=== PATIENT | female | born 1985 | race Caucasian/White ===

== ENCOUNTER → 2018-11-24 | Outpatient (CLI) | payer BC ==
--- NOTE | 2018-11-24 18:10 | Diagnostic Imaging Report ---
INDICATION: survey. TECHNIQUE: Multiple real-time grayscale images were obtained over the gravid uterus. COMPARISON: None. FINDINGS: Single live intrauterine gestation is identified in a cephalic presentation. The placenta is posteriorly located without evidence of placenta previa. Cervix is closed measuring over 4 cm. cardiac motion is documented at 134 beats per minute. Amniotic fluid is subjectively within normal limits. biometrics are symmetric. They are consistent with an estimated gestational age of 23 weeks and 2 days. Findings are consistent with clinical dating. Intracranial contents of the spine are unremarkable. Four-chamber heart, kidneys, urinary bladder, and three-vessel cord are unremarkable. IMPRESSION: Single live intrauterine gestation in a cephalic presentation with an estimated gestational age of 23 weeks and 2 days. Therefore, there is an estimated due date based upon this examination of March 21, 2019. Findings are consistent with clinical dating. No acute abnormality identified on this examination. Biometrical measurements are as follows: Biparietal 5.78 cm, age 23 weeks 5 days. Head circumference 20.91 cm, age 23 weeks 0 days. Abdominal circumference 17.28 cm, age 22 weeks 2 days. Femur length 4.20 cm, age 23 weeks 5 days. Sonographic estimate age: 23 weeks 2 days. Sonographic estimated date of delivery: 03/21/2019. Estimated Weight: 547 gm (+/- 80 gm). LMP percentile: 82%. heart rate: 134 beats per minute. number: 1 of 1. Dictated by: Dictated on workstation # [id number]
== END ==
LOC: RAD 16:45
PROVIDERS: ATTEND Obstetrics & Gynecology
DX: Z36.89 Encounter for other specified antenatal screening (principal); Z3A.23 23 weeks gestation of pregnancy
CPT/HCPCS: 76805

== ENCOUNTER 2019-03-28 07:23 | Inpatient (IN) | payer BC ==
[~2019-03-28] VITALS: Ht 157 cm; Wt 68.8 kg
[2019-03-28] VITALS (34 sets, daily range): BP systolic 90–148; BP diastolic 50–96
--- NOTE | 2019-03-28 07:15 | NUR ---
Arrived to unit ambulates self with c/o contractions. wt obtained and to room 320. Gowned and urine sample obtained. To bed and monitors on. Oriented to room, call light and surroundings.
[2019-03-28] MEDS ORDERED: PREN-37 PO (07:41)
[2019-03-28 07:49] LABS: BILIRUBIN,URINE NEGATIVE (NEGATIVE); CLARITY,URINE CLEAR; COLOR,URINE YELLOW; GLUCOSE, URINE (UA) NEGATIVE (NEGATIVE); KETONES,URINE NEGATIVE (NEGATIVE); LEUKOCYTE ESTERASE ,URINE NEGATIVE (NEGATIVE); NITRITE,URINE NEGATIVE (NEGATIVE); PH,URINE 6.5 (5-9); PROTEIN,URINE NEGATIVE (NEGATIVE)
--- NOTE | 2019-03-28 07:54 | NUR ---
Dr Bates notified of evaluation, sve, contractions, fhr pattern, pt pain with contractions.
[2019-03-28 08:02] LABS: BACTERIA,URINE MODERATE /HPF
--- NOTE | 2019-03-28 09:00 | NUR ---
pt resting on right side, eyes closed.
--- NOTE | 2019-03-28 10:00 | NUR ---
rn to bedside. pt denies increase in strength or frequency of contractions.
--- NOTE | 2019-03-28 10:42 | NUR ---
Dr Bates updated on sve, contractions. New order for admit received.
[2019-03-28] MEDS ORDERED: D5 LR IV SOLUTION 1,000 ML IV SCH (11:18)
[2019-03-28 11:44] LABS: BASOPHILS % (AUTO) 0 % (0-10); EOSINOPHILS % (AUTO) 0 % (0-10); HEMATOCRIT 39 % (35-52); HEMOGLOBIN 13.1 G/DL (11.5-16.0); LYMPHOCYTES # (AUTO) 1.4 X 10^3 (1.0-4.0); LYMPHOCYTES % (AUTO) 10 % (12-44); MEAN CORPUSCULAR HEMOGLOBIN 28 PG (25-34); MEAN CORPUSCULAR HGB CONC 34 G/DL (32-36); MEAN CORPUSCULAR VOLUME 83 FL (80-99); MEAN PLATELET VOLUME 11.3 FL (7.4-10.4); MONOCYTES % (AUTO) 7 % (0-12); NEUTROPHILS # (AUTO) 11.3 X 10^3 (1.8-7.8); NEUTROPHILS % (AUTO) 83 % (42-75); PLATELET COUNT 206 10^3/uL (130-400); RED CELL DISTRIBUTION WIDTH 15.8 % (10.0-14.5); WHITE BLOOD COUNT 13.7 10^3/uL (4.3-11.0)
[2019-03-28] MEDS ORDERED: SUFENTA 0.6MCG/ML BUPIVA 0.125 100 ML ONE (11:47)
[2019-03-28] MEDS ORDERED: fentaNYL INJECTION 100 MCG/2 ML AMP ONE ×3 (11:58→17:28)
[2019-03-28] MEDS ORDERED: BUPIVACAINE 0.25% 30 ML (SENSORCAINE) VIAL ONE (11:58)
[2019-03-28] MEDS ORDERED: LACTATED RINGERS 1,000 ML IV ONE ×2 (12:23→16:01)
[2019-03-28] MEDS ORDERED: EPIDURAL (SUFENTA 0.6MCG/ML BUPIVA 0.125%) 100 ML BAG EPI SCH (12:30)
[2019-03-28] MEDS ORDERED: NALOXONE 0.4 MG/ML 1 ML (NARCAN) VIAL IV PRN (12:30)
[2019-03-28] MEDS ORDERED: CATHETER FLUSH 10 ML SYR IV PRN (12:30)
[2019-03-28] MEDS ORDERED: OXYTOCIN/NORMAL SALINE 500 ML IV SCH (12:40)
[2019-03-28] MEDS ORDERED: OXYTOCIN/NORMAL SALINE 500 ML IV ONE (12:47)
[2019-03-28] MEDS ORDERED: ONDANSETRON 4 MG/2 ML (SDV) Z0FRAN IVP PRN ×3 (14:15→17:30)
[2019-03-28] MEDS ORDERED: LIDOCAINE/EPI 2% 1:200,00 (XYLOCAINE) 10 ML VIAL ONE (15:44)
[2019-03-28] MEDS ORDERED: METOCLOPRAMIDE INJ 10 MG/2 ML (REGLAN) ONE (15:50)
[2019-03-28] MEDS ORDERED: TERBUTALINE INJ 1 MG/ML (BRETHINE) AMP ONE (15:50)
[2019-03-28] MEDS ORDERED: CITRIC ACID/SOB CIT (BICITRA) 30 ML UDC ONE (15:50)
[2019-03-28] MEDS ORDERED: FAMOTIDINE 20MG/2ML IV (PEPCID) ONE (15:51)
[2019-03-28] MEDS ORDERED: LIDOCAINE PF 2% 5 ML (XYLOCAINE) VIAL ONE (15:54)
[2019-03-28] MEDS: CATHETER FLUSH 10 ML SYR IV SCH ×3 (15:57→22:00)
[2019-03-28] MEDS ORDERED: ceFAZolin INJECTION 1,000 MG ONE (16:05)
[2019-03-28] MEDS ORDERED: WATER (STERILE) FOR INJECTION 10 ML ONE (16:05)
[2019-03-28] MEDS ORDERED: MIDAZOLAM 10 MG/2 ML (VERSED) VIAL ONE (16:21)
[2019-03-28] MEDS ORDERED: MIDAZOLAM 2 MG/2 ML (VERSED) VIAL ONE ×2 (16:21→16:35)
[2019-03-28] MEDS ORDERED: KETAMINE/NaCl 50 MG/5 ML SYRINGE (ED ONLY) ONE (16:21)
[2019-03-28] MEDS ORDERED: BUPIVACAINE 0.5% 30 ML (SENSORCAINE) VIAL ONE (16:36)
[2019-03-28] MEDS ORDERED: PHENYLEPHRINE 100 MCG/ML 10 ML (ANESTHESIA) SYR ONE (16:42)
[2019-03-28] MEDS ORDERED: KETOROLAC 30 MG/ML VIAL ONE (16:59)
[2019-03-28] MEDS ORDERED: HYDROmorphone 2 MG/ML VIAL (DILAUDID) ONE (16:59)
[2019-03-28] MEDS ORDERED: LACTATED RINGERS 1,000 ML IV PRN (16:59)
--- NOTE | 2019-03-28 16:59 | History & Physical-OB ---
OB - Chief Complaint & HPI Date/Time Date of Admission: Date of Admission: Mar 28, 2019 at 11:17 Date seen by a Provider: Mar 28, 2019 Time Seen by a Provider: 08:30 Chief Complaint/History OB-Reason for Admission/Chief: Onset of Labor Hx : 1 Hx Para: 0 Expected Date of Delivery: Mar 29, 2019 Gestational Age in Weeks: 39 Gestational Age in Days: 6 Admission Nurse Assessment Rev: Yes Other Patient of Dr. Brasher who presented in labor making change from 3-5 cm, and requesting epidural. Reports no concerns with the Allergies and Home Medications Allergies Coded Allergies: No Known Drug Allergies (Unverified , 03/28/19) Home Medications Vit/Iron Fumarate/FA 1 Each Tablet, 1 EACH PO DAILY, (Reported) Patient Home Medication List Home Medication List Reviewed: Yes OB - History Hx of Present Care: Yes Ultrasounds: Normal mid trimester US Obstetrical Complications: None Medical Complications: None Obstetrical History Hx : 1 Hx Para: 0 Patient Past Medical History n/a Social History/Family History Recent Infectious Disease Expo: No Alcohol Use: Denies Use Recreational Drug Use: No Immunizations Date of Influenza Vaccine: Mar 09, 2019 OB - Admission Exam Physical Exam Vitals: Vital Signs 03/28/19 03/28/19 15:30 15:45 Temp 37.4 Pulse 105 Resp 18 B/P (MAP) 136/82 (100) Pulse Ox 100 O2 Delivery Non Rebreather O2 Flow Rate 10.00 HEENT: NCAT Heart: Rhythm Normal Lungs: Clear Abdomen: Gravid Extremities: Normal Reflexes: Normal Cervical Dilatation: 5cm Effacement: 75% Station: -1 Membranes: Intact Heart Rate: 130's Accelerations: Accelerations Present Decelerations: No Decelerations Short Term Variability: Present Block Making Machine Operator Variability: Average (6-25) Contractions on Admission: 6-10 Minutes Apart Intensity: Firm Labs Laboratory Tests Test 03/28/19 07:25 03/28/19 11:25 Range/Units Urine Color YELLOW Urine Clarity CLEAR Urine pH 6.5 5-9 Urine Specific Hazel 1.010 L 1.016-1.022 Urine Protein NEGATIVE NEGATIVE Urine Glucose (UA) NEGATIVE NEGATIVE Urine Ketones NEGATIVE NEGATIVE Urine Nitrite NEGATIVE NEGATIVE Urine Bilirubin NEGATIVE NEGATIVE Urine Urobilinogen 0.2 < = 1.0 MG/DL Urine Leukocyte Esterase NEGATIVE NEGATIVE Urine RBC (Auto) 1+ H NEGATIVE Urine RBC NONE /HPF Urine WBC 2-5 /HPF Urine Squamous Epithelial Cells 2-5 /HPF Urine Crystals NONE /LPF Urine Bacteria MODERATE H /HPF Urine Casts NONE /LPF Urine Mucus NEGATIVE /LPF Urine Culture Indicated YES White Blood Count 13.7 H 4.3-11.0 10^3/uL Red Blood Count 4.68 4.35-5.85 10^6/uL Hemoglobin 13.1 11.5-16.0 G/DL Hematocrit 39 35-52 % Mean Corpuscular Volume 83 80-99 FL Mean Corpuscular Hemoglobin 28 25-34 PG Mean Corpuscular Hemoglobin Concent 34 32-36 G/DL Red Cell Distribution Width 15.8 H 10.0-14.5 % Platelet Count 206 130-400 10^3/uL Mean Platelet Volume 11.3 H 7.4-10.4 FL Neutrophils (%) (Auto) 83 H 42-75 % Lymphocytes (%) (Auto) 10 L 12-44 % Monocytes (%) (Auto) 7 0-12 % Eosinophils (%) (Auto) 0 0-10 % Basophils (%) (Auto) 0 0-10 % Neutrophils # (Auto) 11.3 H 1.8-7.8 X 10^3 Lymphocytes # (Auto) 1.4 1.0-4.0 X 10^3 Monocytes # (Auto) 1.0 0.0-1.0 X 10^3 Eosinophils # (Auto) 0.0 0.0-0.3 10^3/uL Basophils # (Auto) 0.0 0.0-0.1 10^3/uL OB - Assessment/Plan/Diagnosis Assessment Assessment: active labor Admission Dx 33 yo @ 39.6 weeks Active labor GBS neg Admission Status: Inpatient Order (span 2 midnights) Reason for Inpatient Admission: Active labor at term Plan Plan: Expectant Management ([facility]OM, once epidural in place, will augment with pitocin if necessary) HÉCTOR PEREIRA DO Mar 28, 2019 16:59 POS
[2019-03-28] MEDS ORDERED: MEASLES,MUMPS,RUBELLA 1 EA INJ SC SCH (17:00)
[2019-03-28] MEDS ORDERED: TETANUS,DIPTH,PERTUSS P/F (BOOSTRIX) 0.5 ML VIAL IM SCH (17:00)
[2019-03-28] MEDS ORDERED: ceFAZolin INJECTION 1,000 MG VIAL IV ONE (17:00)
[2019-03-28] MEDS: KETOROLAC 30 MG/ML VIAL IV SCH ×2 (17:05→23:09)
[2019-03-28] MEDS ORDERED: HYDROmorphone 2 MG/ML VIAL (DILAUDID) IV ONE (17:15)
[2019-03-28] MEDS ORDERED: fentaNYL INJECTION 100 MCG/2 ML AMP IVP ONE (17:30)
--- NOTE | 2019-03-28 17:55 | NUR ---
Pt transferred to room 307 via bed. Oriented to room, call light and surroundings. liquid tray to bedside, offered sandwich tray that she declined. family to bring food for pt. pt denies questions
[2019-03-28] MEDS: OXYTOCIN/NORMAL SALINE 500 ML IV SCH ×2 (18:15→23:05)
--- NOTE | 2019-03-28 18:30 | NUR ---
RT notified of IS order
[2019-03-28] MEDS: IBUPROFEN 600 MG (MOTRIN) TAB PO SCH (18:31)
[2019-03-28] MEDS ORDERED: HYDROmorphone 2 MG/ML VIAL (DILAUDID) IV PRN (19:30)
[2019-03-28] MEDS ORDERED: HYDROcodone/APAP 5 MG/325 MG (LORTAB) TAB ONE (21:18)
[2019-03-28] MEDS: DOCUSATE SODIUM 100 MG (COLACE) CAP PO SCH (21:22)
[2019-03-29] VITALS: BP 129/67
--- NOTE | 2019-03-29 00:48 | OPERATIVE REPORT ---
DATE OF SERVICE: PREOPERATIVE DIAGNOSES: 1. A 33-year-old G1, P0 at 39 weeks and 6 days gestation. 2. intolerance to second stage labor. POSTOPERATIVE DIAGNOSES: 1. A 33-year-old G1, P0 at 39 weeks and 6 days gestation. 2. intolerance to second stage labor. PROCEDURE: Primary low transverse section. SURGEON: Christos Bates D.O. ANESTHESIA: Epidural, which was bolused. ESTIMATED BLOOD LOSS: 700 mL. URINE OUTPUT: 20 mL clear at the end of procedure. FLUIDS: 1600 mL lactated Ringer's solution. FINDINGS: A live male infant weighing 7 pounds 15 ounces, Apgars of 8 and 9. Grossly normal appearing bilateral fallopian tubes and ovaries. Multiple subserosal fibroids on the uterus. SPECIMEN SENT: Placenta. INDICATIONS FOR PROCEDURE: A 33-year-old female patient who had sought care with Dr. Fletcher and throughout her had been uncomplicated. She presented to the labor unit in active early labor. She made change upon admission and was requesting an epidural. She progressed to 5 cm, at which point, an epidural was placed. Artificial rupture of membranes was performed. Pitocin augmentation was utilized to maximum dose of 6 milliunits. She progressed to complete and 0 station; however, with ineffective pushing and prolonged heart rate deceleration due to the patient being remote from delivery and the infant was not tolerating pushing and having heart rate dropped down to the 60s, I discussed with the patient proceeding with urgent delivery via . Risks of procedure were discussed with the patient in detail versus the risk of proceeding on the current course. The patient was agreeable to proceed with . Consent was obtained. After everything was discussed and agreed upon, anesthesia was notified. The patient was taken to the operating room. OPERATIVE REPORT IN DETAIL: Once in the operating room, epidural analgesia was bolused and found to be adequate, placed in supine position with leftward tilt, prepped and draped in normal sterile fashion. A timeout was performed and anesthesia was tested. I then make a Pfannenstiel skin incision with a knife and carried down layer of fascia using Bovie cautery. Fascial incision extended laterally using Bovie cautery. Superior aspect of fascial incision was then grasped with Adam clamps, tented up and dissected off the underlying rectus muscles. The inferior aspect of fascial incision was then grasped with Adam clamps, tented up and dissected off the underlying rectus muscles. Rectus muscles were dissected down the midline using Henry scissors, which exposed the peritoneum, which I entered bluntly and extended using blunt traction. I placed an Favio ring retractor within the peritoneal incision, which offered excellent lateral sidewall retraction. I made a low transverse incision to the vesicouterine peritoneum and bluntly dissected off the lower uterine segment. I proceeded with myotomy until membranes were visualized, at which point, I extended the uterine incision laterally and superiorly using bandage scissors. The infant was found in vertex presentation. With gentle fundal pressure, the 's head was elevated up the incision where it was delivered. The nares and oropharynx were then bulb suctioned. Anterior and posterior shoulders were delivered. The was then brought to the operative field where the cord was doubly clamped and cut and infant was handed off to waiting nurses in attendance. Cord blood was collected, 3-vessel cord with intact placenta was delivered spontaneously thereafter. IV Pitocin was initiated to facilitate uterine contraction. Uterine fundus became firm with bimanual massage. I then proceeded with closing the uterine incision because I am unable to exteriorize the uterus. I closed it within the abdomen. The uterine incision was closed using 0 Vicryl suture in running locked fashion. Second layer of imbricating 0 Monocryl was placed. Excellent hemostasis was noted after doing this. I then copiously irrigated the pelvis using normal saline. Once again, there was no active bleeding noted from any of my dissection planes. I placed Interceed antiadhesive over my low transverse incision and proceeded with closing the peritoneum using 3-0 Vicryl suture in running fashion. The rectus muscle was reapproximated using 3-0 Vicryl suture in interrupted fashion. The fascia was reapproximated using 0 Vicryl suture in running fashion. Subcutaneous tissue was reapproximated using 3-0 plain in an interrupted subcutaneous stitch and skin reapproximated using 4-0 Monocryl running subcuticular. Dermabond was applied to incision and sterile dressing with adhesive white tape. The patient tolerated the procedure well and was taken to recovery area in stable condition. Lap and sponge counts were correct at the end of the procedure. Instrument counts were correct as well. One gram of Ancef given preoperatively for infection prophylaxis. Job ID: [id number] DocumentID: [id number] Dictated Date: 03/28/2019 17:15:31 Restorative Aide Date: 03/29/2019 00:48:14 Dictated By: DO EVIN GOMES
--- NOTE | 2019-03-29 01:20 | NUR ---
Pt up to void and doing well, no concerns at this time.
[2019-03-29] MEDS: IBUPROFEN 600 MG (MOTRIN) TAB PO SCH ×4 (04:11→21:59)
[2019-03-29] MEDS: KETOROLAC 30 MG/ML VIAL IV SCH ×2 (04:25→10:50)
[2019-03-29] MEDS: HYDROcodone/APAP 5 MG/325 MG (LORTAB) TAB PO PRN ×5 (04:25→21:59)
[2019-03-29] MEDS: CATHETER FLUSH 10 ML SYR IV SCH ×3 (04:25→10:50)
--- NOTE | 2019-03-29 04:48 | NUR ---
Pt up voiding and then to bed, dressing removed per order. IV medication given with PO medications. pt resting well at this time.
[2019-03-29 04:50] VITALS: BP 131/75
[2019-03-29 06:31] LABS: BASOPHILS % (AUTO) 0 % (0-10); EOSINOPHILS # (AUTO) 0.1 10^3/uL (0.0-0.3); EOSINOPHILS % (AUTO) 0 % (0-10); HEMATOCRIT 32 % (35-52); HEMOGLOBIN 10.6 G/DL (11.5-16.0); LYMPHOCYTES # (AUTO) 1.4 X 10^3 (1.0-4.0); LYMPHOCYTES % (AUTO) 8 % (12-44); MEAN CORPUSCULAR HEMOGLOBIN 28 PG (25-34); MEAN CORPUSCULAR HGB CONC 34 G/DL (32-36); MEAN CORPUSCULAR VOLUME 84 FL (80-99); MEAN PLATELET VOLUME 10.4 FL (7.4-10.4); MONOCYTES # (AUTO) 1.1 X 10^3 (0.0-1.0); MONOCYTES % (AUTO) 6 % (0-12); NEUTROPHILS # (AUTO) 14.3 X 10^3 (1.8-7.8); NEUTROPHILS % (AUTO) 85 % (42-75); PLATELET COUNT 168 10^3/uL (130-400); RED CELL DISTRIBUTION WIDTH 15.7 % (10.0-14.5); WHITE BLOOD COUNT 16.9 10^3/uL (4.3-11.0)
[2019-03-29 07:51] LABS: NEUTROPHILS % (MANUAL) 92 %
[2019-03-29 07:54] LABS: LYMPHOCYTES % (MANUAL) 3 %; MONOCYTES % (MANUAL) 5 %; RBC MORPH NORMAL
--- NOTE | 2019-03-29 08:26 | Postpartum Progress Note ---
Note Note Day # 1 Subjective: Patient is without complaints. Ambulating, voiding. Tolerating a regular diet without nausea or vomiting. Normal lochia. Pain is well controlled with oral pain medications. Objective: Physical Exam: General - Alert and oriented, no apparent distress Abdomen - Soft, appropriately tender to palpation, non-distended, fundus firm at umbilicus Extremities - no edema, negative Matt's bilaterally Incision- c/d/i Assessment: POD 1 PLTCS- DARRYL Acute blood loss anemia Plan: Routine care. Encourage breast feeding. Encourage ambulation. Ferrous sulfate supplementation. Plan for discharge tomorrow Vitals - Labs Vital Signs - I&O Vital Signs Date Time Temp Pulse Resp B/P (MAP) Pulse Ox O2 Delivery O2 Flow Rate FiO2 03/29/19 04:50 37.2 75 18 131/75 (93) 97 Room Air 03/29/19 00:00 36.9 91 18 129/67 (87) 96 Room Air 03/28/19 19:50 37.4 99 18 129/67 (87) 96 Room Air 03/28/19 18:47 Room Air 03/28/19 17:45 37.9 16 145/90 (108) 99 Room Air 03/28/19 17:35 Room Air 03/28/19 17:30 38.0 16 129/95 (106) 98 Room Air 03/28/19 17:20 Room Air 03/28/19 17:15 37.9 17 143/96 (112) 99 Room Air 03/28/19 17:05 Room Air 10.00 03/28/19 17:00 17 129/74 (92) 99 Room Air 03/28/19 16:50 Room Air 03/28/19 16:00 96 18 123/57 (79) 100 Non Rebreather 10.00 03/28/19 15:45 Non Rebreather 10.00 03/28/19 15:30 37.4 105 18 136/82 (100) 100 Non Rebreather 10.00 03/28/19 15:15 90 18 134/63 (86) 100 Non Rebreather 10.00 03/28/19 15:00 97 18 124/76 (92) 100 Non Rebreather 10.00 03/28/19 14:45 75 18 110/53 (72) 100 Non Rebreather 10.00 03/28/19 14:30 88 18 106/59 (75) 100 Room Air 03/28/19 14:15 96 18 116/71 (86) 100 Room Air 03/28/19 14:00 88 18 116/59 (78) 99 Room Air 03/28/19 13:45 79 18 98/53 (68) 99 Room Air 03/28/19 13:30 73 18 96/59 (71) 99 Room Air 03/28/19 13:15 83 18 91/52 (65) 99 Room Air 03/28/19 13:00 36.8 87 18 107/63 (78) 99 Room Air 03/28/19 12:55 90 18 117/62 (80) 97 Room Air 03/28/19 12:50 90 18 92/54 (67) 99 Room Air 03/28/19 12:45 99 18 100/54 (69) 99 Room Air 03/28/19 12:38 93 18 101/59 (73) 99 Room Air 03/28/19 12:35 71 18 113/63 (80) 99 Room Air 03/28/19 12:32 101 18 108/56 (73) 99 Room Air 03/28/19 12:30 99 18 100/54 (69) 99 Room Air 03/28/19 12:26 86 18 112/56 (74) 99 Room Air 03/28/19 12:23 105 18 90/50 (63) 99 Room Air 03/28/19 12:20 102 18 141/64 (89) 99 Room Air 03/28/19 12:15 82 18 139/85 (103) 100 Room Air 03/28/19 12:10 93 18 141/82 (101) 100 Room Air 03/28/19 12:05 88 18 148/74 (98) 99 Room Air 03/28/19 11:55 79 18 132/78 (96) Room Air 03/28/19 11:40 37.1 82 18 126/76 (93) Room Air I & O 03/29/19 07:00 Intake Total 5500 ml Output Total 2440 ml Balance 3060 ml Labs Laboratory Tests 03/28/19 11:25: White Blood Count 13.7H, Red Blood Count 4.68, Hemoglobin 13.1, Hematocrit 39, Mean Corpuscular Volume 83, Mean Corpuscular Hemoglobin 28, Mean Corpuscular Hemoglobin Concent 34, Red Cell Distribution Width 15.8H, Platelet Count 206, Mean Platelet Volume 11.3H, Neutrophils (%) (Auto) 83H, Lymphocytes (%) (Auto) 10L, Monocytes (%) (Auto) 7, Eosinophils (%) (Auto) 0, Basophils (%) (Auto) 0, Neutrophils # (Auto) 11.3H, Lymphocytes # (Auto) 1.4, Monocytes # (Auto) 1.0, Eosinophils # (Auto) 0.0, Basophils # (Auto) 0.0 03/29/19 06:24: White Blood Count 16.9H, Red Blood Count 3.76L, Hemoglobin 10.6L, Hematocrit 32L , Mean Corpuscular Volume 84, Mean Corpuscular Hemoglobin 28, Mean Corpuscular Hemoglobin Concent 34, Red Cell Distribution Width 15.7H, Platelet Count 168, Mean Platelet Volume 10.4, Neutrophils (%) (Auto) 85H, Lymphocytes (%) (Auto) 8L , Monocytes (%) (Auto) 6, Eosinophils (%) (Auto) 0, Basophils (%) (Auto) 0, Neutrophils # (Auto) 14.3H, Lymphocytes # (Auto) 1.4, Monocytes # (Auto) 1.1H, Eosinophils # (Auto) 0.1, Basophils # (Auto) 0.0, Neutrophils % (Manual) 92, Lymphocytes % (Manual) 3, Monocytes % (Manual) 5, Blood Morphology Comment NORMAL [facility] CENTERDEMIHÉCTOR Rhodes Mar 29, 2019 08:26 POS
[2019-03-29] MEDS ORDERED: ACHD5005 PO (08:29)
[2019-03-29] MEDS ORDERED: DOCU100C37 PO (08:29)
[2019-03-29] MEDS ORDERED: IBUP-844 PO (08:29)
[2019-03-29] MEDS ORDERED: FERR325T18 PO (08:29)
--- NOTE | 2019-03-29 08:31 | Discharge Inst-Women's Service ---
Discharge Inst-Women's Serv Depart Medication/Instructions New, Converted or Re-Newed RX: RX on Chart Final Diagnosis POD 2 PLTCS Problems Reviewed?: Yes Consults/Follow Up Orders/Referrals Dr. Bates in 7-[address] Fletcher in 6 weeks Activity Activity: Activity as Tolerated Driving Instructions: No Driving for 1 Week NO SMOKING: NO SMOKING Nothing Inside Vagina: No Douching, No [place], No Tampons Diet Discharge Diet: No Restrictions Symptoms to Report to : Bleeding Excessive, Pain Increased, Fever Over 101 Degrees F, Vaginal Bleeding Increase, Questions/Concerns For Any Problems or Questions: Contact Your Physician Skin/Wound Care Infection Signs and Symptoms: Increased Redness, Foul Odor of Wound, Increased Drainage, Skin Itchy or Has a Rash, Increased Swelling, Temperature Above 101 F Operative Area Clean and Dry: Keep Incision Clean/Dry Stitches/[place]/Dermabond: Dermabond, Care of Stitches Bathing Instructions: HÉCTOR Madrid DO Mar 29, 2019 08:31 POS
--- NOTE | 2019-03-29 08:39 | NUR ---
Dr Bates to see patient and review plan of care.
[2019-03-29 08:54] VITALS: BP 119/71
[2019-03-29] MEDS: DOCUSATE SODIUM 100 MG (COLACE) CAP PO SCH ×2 (09:06→21:59)
--- NOTE | 2019-03-29 10:05 | Anesthesia-Regional Post-Op ---
Regional Patient Condition Mental Status: Alert, Oriented x3 Circulation: Same as Pre-Op Headache: Absent Sensation: Full Recovery Motor Block: Absent Post Op Complications Complications None Follow Up Care/Instructions Patient Instructions None needed. Anesthesia/Patient Condition Patient is doing well, no complaints, stable vital signs, no apparent adverse anesthesia problems. No complications reported per nursing. D/C home per [facility] [place] [place] Criteria: NEHEMIAS Hassan CRNA Mar 29, 2019 10:05 POS
--- NOTE | 2019-03-29 11:13 | NUR ---
Shower setup for pt. pt denies need for help at this time.
[2019-03-29 11:57] VITALS: BP 123/66
[2019-03-29 16:11] VITALS: BP 129/74
[2019-03-29 22:00] VITALS: BP 145/68
--- NOTE | 2019-03-30 02:08 | NUR ---
Pt up ambulating in room, new SCD's to pt but not placed at this time due to up movement. Pt has no concerns at this time.
[2019-03-30] MEDS: IBUPROFEN 600 MG (MOTRIN) TAB PO SCH ×4 (02:10→12:40)
[2019-03-30] MEDS: HYDROcodone/APAP 5 MG/325 MG (LORTAB) TAB PO PRN ×2 (03:58→12:41)
[2019-03-30 04:03] VITALS: BP 124/75
--- NOTE | 2019-03-30 04:04 | NUR ---
Pt woken for pain medications. Pt states pain is tolerable at this time and she is able to rest well.
--- NOTE | 2019-03-30 04:05 | NUR ---
Father asked about VS. Resp rate 54 at this time. resting well in crib at this time.
--- NOTE | 2019-03-30 07:37 | Postpartum Progress Note ---
Note Note Day # 2 Subjective: Patient is without complaints. Ambulating, voiding. Tolerating a regular diet without nausea or vomiting. Normal lochia. Pain is well controlled with oral pain medications. Objective: Physical Exam: General - Alert and oriented, no apparent distress Abdomen - Soft, appropriately tender to palpation, non-distended, fundus firm at umbilicus Extremities - no edema, negative Matt's bilaterally Incision- c/d/i Assessment: POD 2 RLTCS Acute blood loss anemia Plan: Routine care. Encourage breast feeding. Encourage ambulation. Ferrous sulfate supplementation. Plan for discharge today Vitals - Labs Vital Signs - I&O Vital Signs Date Time Temp Pulse Resp B/P (MAP) Pulse Ox O2 Delivery O2 Flow Rate FiO2 03/30/19 04:03 36.9 80 18 124/75 (91) 97 Room Air 03/29/19 22:00 37.5 84 18 145/68 (93) 97 Room Air 03/29/19 16:11 37.7 88 18 129/74 (92) 97 Room Air 03/29/19 11:57 37.1 89 18 123/66 (85) 96 Room Air 03/29/19 08:54 37.4 88 18 119/71 (87) 96 Room Air I & O 03/30/19 07:00 Output Total 900 ml Balance -900 ml Labs Microbiology 03/28/19 Urine Culture - Preliminary, Resulted NO GROWTH HÉCTOR PEREIRA DO Mar 30, 2019 07:37 POS
--- NOTE | 2019-03-30 07:40 | NUR ---
DR. PEREIRA TO PT'S BEDSIDE.
--- NOTE | 2019-03-30 07:50 | NUR ---
THIS RN TO BEDSIDE, SELF INTRODUCED. PT INFORMED OF MEDS AND VS DUE AROUND 1000. PT DENIES ANY NEEDS OR QUESTIONS AT THIS TIME. S/O AT THE BEDSIDE.
--- NOTE | 2019-03-30 07:55 | NUR ---
MACIE MEAL TRAY DELIVERED TO ROOM.
[2019-03-30 09:36] VITALS: BP 126/70
[2019-03-30] MEDS: DOCUSATE SODIUM 100 MG (COLACE) CAP PO SCH (09:37)
--- NOTE | 2019-03-30 09:40 | NUR ---
PT RESTING IN BED. VS OBTAINED. COLACE GIVEN PO; SEE EMAR FOR FURTHER. PT DOESN'T WANT TO TAKE THE MOTRIN AT THIS TIME. INITIAL SHIFT ASSESSMENT COMPLETED; SEE INTERVENTION FOR FURTHER. S/O AT THE BEDSIDE. PT PLANS TO CONTINUE RESTING, NO NEEDS OR QUESTIONS VOICED. PT INFORMED TO LET THIS RN KNOW WHEN READY FOR DISCHARGE PAPERS THEY ARE PRINTED AND READY, PT VERBALIZES UNDERSTANDING. CALL LIGHT WITHIN REACH.
--- NOTE | 2019-03-30 11:50 | NUR ---
PT HOLDING . S/O AND Velia SAMUELS RN AT THE BEDSIDE. PT VOICES THAT LATCHED ON REALLY WELL. NO NEEDS VOICED, PLANS TO PUT LOGGING RAFTER LABORER LIGHT WHEN READY FOR DISCHARGE PAPERS.
--- NOTE | 2019-03-30 12:30 | NUR ---
DISCHARGE PAPERS PROVIDED AND REVIEWED WITH PT, PT VERBALIZES UNDERSTANDING AND DENIES ANY NEEDS OR QUESTIONS AT THIS TIME. PAPER SIGNED. S/O AT THE BEDSIDE. FOLLOW UP APPT CARDS AND RX'S ALL PROVIDED AND PLACED INTO FOLDER.
--- NOTE | 2019-03-30 13:45 | NUR ---
PT DISCHARGED FROM -[facility] TO [facility]ERSONAL [facility] VIA AMBULATORY IN STABLE CONDITION ACC BY S/O AND Velia SAMUELS RN.
== END 2019-03-30 13:45 | disposition home or self-care (01) | DRG 787 ==
LOC: LDRP 07:23 → WSo 07:23 → LDRP 11:17 → WSo 11:17 → LDRP 17:55
PROVIDERS: ADMIT Obstetrics & Gynecology; ATTEND Obstetrics & Gynecology
PROC: 10D00Z1 Extraction of Products of Conception, Low, Open Approach (ICD-10-PCS; principal; 2019-03-28 16:03)
DX: O76 Abnormality in fetal heart rate and rhythm complicating labor and delivery (principal); D62 Acute posthemorrhagic anemia; Z3A.39 39 weeks gestation of pregnancy; Z37.0 Single live birth; O34.13 Maternal care for benign tumor of corpus uteri, third trimester; D25.2 Subserosal leiomyoma of uterus; O90.81 Anemia of the puerperium
CPT/HCPCS: 36415; 81000; 85007; 85025; 85027; 86850; 86900; 86901; 87088; 90707; 94664; 99212

== ENCOUNTER → 2020-07-04 | Outpatient (CLI) | payer BC ==
[~2020-07-04] MED LIST: ACHD5005 PO; DOCU100C37 PO; FERR325T18 PO; IBUP-844 PO; PREN-37 PO
--- NOTE | 2020-07-04 15:59 | Diagnostic Imaging Report ---
INDICATION: survey. TECHNIQUE: Multiple real-time grayscale images were obtained over the gravid uterus. COMPARISON: None FINDINGS: There are no prior studies available for comparison. There is a single live fetus in cephalic presentation. heart motion was noted and a rate of 147 BPM was recorded. There were no abnormalities identified. The growth parameters are fairly uniform. The placenta is anterior and there is no previa. The amniotic fluid volume is within normal limits. The cervix measures 4.2 cm in length. Biometrical measurements are as follows: Biparietal 5.23 cm, age 22 weeks 0 days. Head circumference 19.51 cm, age 21 weeks 6 days. Abdominal circumference 18.68 cm, age 23 weeks 4 days. Femur length 3.83 cm, age 22 weeks 2 days. Sonographic estimate age: 22 weeks 3 days. Sonographic estimated date of delivery: 11/04/2020. Estimated Weight: 533 gm (+/- 78 gm). LMP percentile: 94%. heart rate: 147 beats per minute. number: 1 of 1. IMPRESSION: 1. There is a single live fetus approximately 22 weeks 3 days gestation +/- 2 weeks. The EDC is 11/04/2020. 2. There were no abnormalities identified. 3. The growth parameters are fairly uniform. Dictated by: Dictated on workstation # [id number]
== END ==
LOC: RAD 14:33
PROVIDERS: ATTEND Nurse Practitioner Women's Health
DX: Z36.89 Encounter for other specified antenatal screening (principal); Z3A.22 22 weeks gestation of pregnancy
CPT/HCPCS: 76805

== ENCOUNTER 2020-10-28 05:38 | Outpatient (CLI) | payer BC ==
[~2020-10-28] VITALS: Ht 157.5 cm; Wt 71.4 kg
== END 2020-10-28 14:53 | disposition home or self-care (01) ==
LOC: PREOP 05:38
PROVIDERS: ATTEND Obstetrics & Gynecology
DX: Z01.818 Encounter for other preprocedural examination (principal)

== ENCOUNTER 2020-11-04 08:25 | Inpatient (IN) | payer BC ==
[~2020-11-04] VITALS: Ht 157 cm; Wt 70.4 kg
[2020-11-04] VITALS (7 sets, daily range): BP systolic 111–132; BP diastolic 65–77
--- NOTE | 2020-11-04 08:34 | History & Physical-OB ---
OB - Chief Complaint & HPI Date/Time Date of Admission: Date of Admission: Nov 04, 2020 at 08:25 Date seen by a Provider: Nov 04, 2020 Time Seen by a Provider: 09:00 Chief Complaint/History OB-Reason for Admission/Chief: Section Hx : 2 Hx Para: 1 Expected Date of Delivery: Nov 10, 2020 Gestational Age in Weeks: 39 Gestational Age in Days: 1 Indication for : desires repeat Admission Nurse Assessment Rev: Yes History of Labs Opos Antibody neg RI RPR NR HIV NR HBsAg NR GC neg GBS neg Allergies and Home Medications Allergies Coded Allergies: No Known Drug Allergies (Unverified , 03/28/19) Home Medications Vit/Iron Fumarate/FA 1 Each Tablet, 1 EACH PO DAILY, (Reported) Patient Home Medication List Home Medication List Reviewed: Yes OB - History Hx of Present Care: Yes Ultrasounds: Normal mid trimester US Obstetrical Complications: None Medical Complications: None Delivery History Adverse Rxn to Tranfusion: No Patient Past Medical History n/a Immunizations Hepatitis A: No Hepatitis B: No Date of Influenza Vaccine: Mar 09, 2019 OB - Admission Exam Physical Exam HEENT: NCAT Heart: Rhythm Normal Lungs: Clear Abdomen: Gravid Extremities: Normal Reflexes: Normal Heart Rate: 130's Accelerations: Accelerations Present Decelerations: No Decelerations Short Term Variability: Present Line Assembler Variability: Average (6-25) Contractions on Admission: 6-10 Minutes Apart Intensity: Mild OB - Assessment/Plan/Diagnosis Assessment Assessment: section Admission Dx 35 yo @ 39 weeks Previous AMA GBS neg Admission Status: Inpatient Order (span 2 midnights) Reason for Inpatient Admission: Repeat at 39 weeks Plan Plan: Section HÉCTOR PEREIRA DO Nov 04, 2020 08:34
[2020-11-04] MEDS ORDERED: LACTATED RINGERS 1,000 ML IV PRN ×2 (08:45)
[2020-11-04] MEDS ORDERED: CATHETER FLUSH 10 ML SYR IV PRN (08:45)
[2020-11-04] MEDS ORDERED: METOCLOPRAMIDE INJ 10 MG/2 ML (REGLAN) IV ONE (08:45)
[2020-11-04] MEDS ORDERED: ceFAZolin INJECTION 1,000 MG in WATER (STERILE) FOR INJECTION 10 ML IV ONE (08:45)
[2020-11-04] MEDS ORDERED: FAMOTIDINE 20MG/2ML IV (PEPCID) IV ONE (08:45)
[2020-11-04] MEDS ORDERED: CITRIC ACID/SOB CIT (BICITRA) 30 ML UDC PO ONE (08:45)
[2020-11-04 09:18] LABS: BASOPHILS # (AUTO) 0.1 10^3/uL (0.0-0.1); BASOPHILS % (AUTO) 1 % (0-10); EOSINOPHILS # (AUTO) 0.2 10^3/uL (0.0-0.3); EOSINOPHILS % (AUTO) 2 % (0-10); HEMATOCRIT 35 % (35-52); HEMOGLOBIN 11.5 g/dL (11.5-16.0); LYMPHOCYTES # (AUTO) 2.1 10^3/uL (1.0-4.0); LYMPHOCYTES % (AUTO) 22 % (12-44); MEAN CORPUSCULAR HEMOGLOBIN 27 pg (25-34); MEAN CORPUSCULAR HGB CONC 33 g/dL (32-36); MEAN CORPUSCULAR VOLUME 83 fL (80-99); MEAN PLATELET VOLUME 11.6 fL (9.0-12.2); MONOCYTES % (AUTO) 10 % (0-12); NEUTROPHILS # (AUTO) 6.2 10^3/uL (1.8-7.8); NEUTROPHILS % (AUTO) 65 % (42-75); PLATELET COUNT 183 10^3/uL (130-400); WHITE BLOOD COUNT 9.6 10^3/uL (4.3-11.0)
[2020-11-04] MEDS ORDERED: ceFAZolin 2 GM IV Premixed 50 ML IV ONE (10:00)
--- NOTE | 2020-11-04 10:26 | Discharge Inst-Women's Service ---
Discharge Inst-Women's Serv Depart Medication/Instructions New, Converted or Re-Newed RX: RX on Chart Final Diagnosis POD 2 RLTCS Problems Reviewed?: Yes Consults/Follow Up Additional Follow Up: Yes Orders/Referrals Dr. Bates in 7-10 days and 6 weeks Activity Activity: Activity as Tolerated Driving Instructions: No Driving for 1 Week NO SMOKING: NO SMOKING Nothing Inside Vagina: No Douching, No [place], No Tampons Diet Discharge Diet: No Restrictions Symptoms to Report to : Bleeding Excessive, Pain Increased, Fever Over 101 Degrees F, Vaginal Bleeding Increase, Questions/Concerns For Any Problems or Questions: Contact Your Physician Skin/Wound Care Infection Signs and Symptoms: Increased Redness, Foul Odor of Wound, Increased Drainage, Skin Itchy or Has a Rash, Increased Swelling, Temperature Above 101 F Operative Area Clean and Dry: Keep Incision Clean/Dry Stitches/Alto/Dermabond: Dermabond, Care of Stitches Bathing Instructions: HÉCTOR Madrid DO Nov 04, 2020 10:25
[2020-11-04] MEDS ORDERED: MEASLES,MUMPS,RUBELLA 1 EA INJ SC SCH (10:30)
[2020-11-04] MEDS ORDERED: TETANUS,DIPTH,PERTUSS P/F (BOOSTRIX) 0.5 ML VIAL IM SCH (10:30)
[2020-11-04] MEDS ORDERED: ACHD5005 PO (10:30)
[2020-11-04] MEDS ORDERED: IBUP-844 PO (10:30)
[2020-11-04] MEDS ORDERED: ONDANSETRON 4 MG/2 ML (SDV) Z0FRAN IVP PRN (10:30)
[2020-11-04] MEDS ORDERED: DCS100C PO (10:30)
[2020-11-04] MEDS ORDERED: OXYTOCIN PRE-MIX DRIP 500 ML IV SCH (10:30)
[2020-11-04] MEDS ORDERED: fentaNYL INJ 100 MCG/2 ML AMP ONE (10:40)
[2020-11-04] MEDS ORDERED: ONDANSETRON 4 MG/2 ML (SDV) Z0FRAN ONE (10:40)
[2020-11-04] MEDS ORDERED: OXYTOCIN PRE-MIX DRIP 500 ML IV ONE (11:14)
[2020-11-04] MEDS ORDERED: BUPIVACAINE 0.5% 30 ML (SENSORCAINE) VIAL ONE (11:23)
[2020-11-04] MEDS ORDERED: ONDANSETRON 4 MG/2 ML (SDV) Z0FRAN IV PRN (12:30)
[2020-11-04] MEDS ORDERED: NALOXONE 0.4 MG/ML 1 ML (NARCAN) VIAL IV PRN (12:30)
[2020-11-04] MEDS ORDERED: diphenhydrAMINE 50 MG/ML INJ (BENADRYL) IV PRN (12:30)
[2020-11-04] MEDS: KETOROLAC 30 MG/ML VIAL IV SCH ×2 (12:38→17:56)
[2020-11-04] MEDS: HYDROcodone/APAP 5 MG/325 MG (LORTAB) TAB PO PRN ×2 (13:45→20:25)
[2020-11-04] MEDS ORDERED: CATHETER FLUSH 10 ML SYR IV SCH (14:00)
--- NOTE | 2020-11-04 17:59 | OPERATIVE REPORT ---
DATE OF SERVICE: PREOPERATIVE DIAGNOSES: 1. A 35-year-old G2, P1 at 39 weeks gestation. 2. Previous section. 3. Advanced maternal age. POSTOPERATIVE DIAGNOSES: 1. A 35-year-old G2, P1 at 39 weeks gestation. 2. Previous section. 3. Advanced maternal age. PROCEDURE: Repeat low transverse section. SURGEON: Christos Bates DO [employer]: Abimbola Fuentes DNP, was necessary for manipulation and retraction throughout the procedure. ANESTHESIA: Spinal. ESTIMATED BLOOD LOSS: 400 mL. URINE OUTPUT: 100 mL clear at the end of the procedure. FLUIDS: 2 liters lactated Ringer's solution. FINDINGS: A live male weighing 8 pounds 10 ounces, Apgars of 9 and 9. Grossly normal appearing uterus, fallopian tubes and ovaries. SPECIMEN SENT: None. INDICATIONS FOR PROCEDURE: This 35-year-old female is a patient who had sought care in my office, which was uncomplicated. She desired to proceed with repeat . She had a with her first delivery. Risks of this procedure were discussed with the patient in detail throughout her care and all of her questions were answered, she was counseled appropriately. In the preoperative area, once again everything was reviewed with the patient, all of her questions were answered, consent was obtained, the patient was taken to the operating room. OPERATIVE REPORT IN DETAIL: Once in the operating room, spinal analgesia was found to be adequate. She was placed in supine position with leftward tilt and prepped and draped in normal sterile fashion. A timeout was performed and anesthesia was tested. I then make a Pfannenstiel skin incision through the previously existing scar using knife and carried down to the underlying fascia using Bovie cautery. The fascial incision extended laterally using Bovie cautery. Superior aspect of fascial incision was then grasped with Adam clamps, tented up and dissected off the underlying rectus muscles. The inferior aspect of the fascial incision was then grasped with Adam clamps, tented up and dissected off the underlying rectus muscles. Rectus muscles were then dissected down the midline using Henry scissors, which exposed the peritoneum, which I entered bluntly and extended using blunt traction. Favio ring retractor was placed in the peritoneal incision, which offers excellent lateral sidewall retraction. I then identified the lower uterine segment, which was found to be thinned out and make a low transverse incision to the vesicouterine peritoneum and bluntly dissected off the lower uterine segment, creating a bladder flap. I then proceeded with my myotomy until membranes were visualized, at which point I extended the uterine incision laterally and superiorly using bandage scissors. Amniotomy was then performed using Allis clamp. Clear fluid was noted. The infant was found in vertex presentation. With gentle fundal pressure, the infant's head was elevated up the incision where it was delivered through the incision. The nares and oropharynx were bulb suctioned. Anterior and posterior shoulders were delivered. The was then brought onto the operative field with cord doubly clamped and cut and was handed off to waiting nurses in attendance. Cord blood was collected, 3-vessel cord with intact placenta was delivered spontaneously thereafter. IV Pitocin is initiated to facilitate uterine contraction. Uterine fundus confirmed by manual massage. Uterus was then exteriorized and cleared of all endometrial clots and debris. I then proceeded with closing the uterine incision using 0 Vicryl suture in running locked fashion. Second layer of imbricating 0 Monocryl was placed. Excellent hemostasis was noted after doing this. The uterus was then placed back within the pelvis and the pelvis was copiously irrigated using normal saline. Once again, there was no active bleeding noted from any of my dissection planes. I placed Interceed antiadhesive over my low transverse incision. I removed the Favio ring retractor and then proceeded with closing the peritoneum using 3-0 Vicryl suture in running fashion. The rectus muscles were reapproximated using 3-0 Vicryl suture in interrupted fashion. The fascia was reapproximated using 0 Vicryl suture in a running fashion. Subcutaneous tissue was reapproximated using 3-0 plain interrupted subcutaneous stitch and skin reapproximated using 4-0 Monocryl in a running subcuticular. Dermabond was applied to incision and sterile dressing with adhesive white tape. The patient tolerated the procedure well and sent to recovery area in stable condition. Lap and sponge count were correct at the end of the procedure. Instrument count was correct as well. Job ID: [id number] DocumentID: [id number] Dictated Date: 11/04/2020 12:06:44 Turn Out Worker Date: 11/04/2020 17:58:18 Dictated By: DO EVIN GOMES
[2020-11-04] MEDS: DOCUSATE SODIUM 100 MG (COLACE) CAP PO SCH (20:25)
[2020-11-05] MEDS: KETOROLAC 30 MG/ML VIAL IV SCH ×2 (00:10→06:14)
[2020-11-05 03:25] VITALS: BP 117/64
[2020-11-05] MEDS: HYDROcodone/APAP 5 MG/325 MG (LORTAB) TAB PO PRN ×4 (03:28→20:23)
[2020-11-05 06:10] LABS: BASOPHILS # (AUTO) 0.1 10^3/uL (0.0-0.1); BASOPHILS % (AUTO) 1 % (0-10); EOSINOPHILS # (AUTO) 0.2 10^3/uL (0.0-0.3); EOSINOPHILS % (AUTO) 2 % (0-10); HEMATOCRIT 33 % (35-52); HEMOGLOBIN 10.6 g/dL (11.5-16.0); LYMPHOCYTES # (AUTO) 1.8 10^3/uL (1.0-4.0); LYMPHOCYTES % (AUTO) 15 % (12-44); MEAN CORPUSCULAR HEMOGLOBIN 27 pg (25-34); MEAN CORPUSCULAR HGB CONC 32 g/dL (32-36); MEAN CORPUSCULAR VOLUME 85 fL (80-99); MEAN PLATELET VOLUME 11.5 fL (9.0-12.2); MONOCYTES # (AUTO) 0.9 10^3/uL (0.0-1.0); MONOCYTES % (AUTO) 8 % (0-12); NEUTROPHILS # (AUTO) 8.8 10^3/uL (1.8-7.8); NEUTROPHILS % (AUTO) 75 % (42-75); PLATELET COUNT 180 10^3/uL (130-400); WHITE BLOOD COUNT 11.8 10^3/uL (4.3-11.0)
[2020-11-05 08:30] VITALS: BP 116/78
--- NOTE | 2020-11-05 08:34 | Postpartum Progress Note ---
Note Note Day # 1 Subjective: Patient is without complaints. Ambulating, voiding. Tolerating a regular diet without nausea or vomiting. Normal lochia. Pain is well controlled with oral pain medications. Objective: Physical Exam: General - Alert and oriented, no apparent distress Abdomen - Soft, appropriately tender to palpation, non-distended, fundus firm at umbilicus Extremities - no edema, negative Matt's bilaterally Incision- c/d/i Assessment: POD 1 RLTCS Acute blood loss anemia AMA Plan: Routine care. Encourage breast feeding. Encourage ambulation. Ferrous sulfate supplementation. Plan for discharge tomorrow Vitals - Labs Vital Signs - I&O Vital Signs Date Time Temp Pulse Resp B/P (MAP) Pulse Ox O2 Delivery O2 Flow Rate FiO2 11/05/20 03:25 36.5 69 16 117/64 (81) 96 Room Air 11/04/20 23:57 36.7 67 18 124/66 (85) 99 Room Air 11/04/20 20:28 36.6 82 16 125/65 (85) 97 Room Air 11/04/20 15:30 36.9 71 16 132/74 (93) 99 Room Air 11/04/20 12:45 36.4 16 111/77 (88) 100 Room Air 11/04/20 12:45 Room Air 11/04/20 12:30 Room Air 11/04/20 12:30 36.0 16 117/67 (84) 98 Room Air 11/04/20 12:15 36.2 16 118/76 (90) 100 Room Air 11/04/20 12:15 Room Air 11/04/20 12:04 Room Air 11/04/20 09:40 36.3 74 18 98 Room Air I & O 11/05/20 07:00 Intake Total 3300 ml Output Total 3425 ml Balance -125 ml Labs Laboratory Tests 11/04/20 09:00: White Blood Count 9.6, Red Blood Count 4.23, Hemoglobin 11.5, Hematocrit 35, Mean Corpuscular Volume 83, Mean Corpuscular Hemoglobin 27, Mean Corpuscular Hemoglobin Concent 33, Red Cell Distribution Width 13.0, Platelet Count 183, Mean Platelet Volume 11.6, Immature Granulocyte % (Auto) 1, Neutrophils (%) (Auto) 65, Lymphocytes (%) (Auto) 22, Monocytes (%) (Auto) 10, Eosinophils (%) (Auto) 2, Basophils (%) (Auto) 1, Neutrophils # (Auto) 6.2, Lymphocytes # (Auto) 2.1, Monocytes # (Auto) 1.0, Eosinophils # (Auto) 0.2, Basophils # (Auto) 0.1, Immature Granulocyte # (Auto) 0.1 11/05/20 05:43: White Blood Count 11.8H, Red Blood Count 3.89, Hemoglobin 10.6L, Hematocrit 33L, Mean Corpuscular Volume 85, Mean Corpuscular Hemoglobin 27, Mean Corpuscular Hemoglobin Concent 32, Red Cell Distribution Width 13.1, Platelet Count 180, Mean Platelet Volume 11.5, Immature Granulocyte % (Auto) 1, Neutrophils (%) (Auto) 75, Lymphocytes (%) (Auto) 15, Monocytes (%) (Auto) 8, Eosinophils (%) (Auto) 2, Basophils (%) (Auto) 1, Neutrophils # (Auto) 8.8H, Lymphocytes # (Auto) 1.8, Monocytes # (Auto) 0.9, Eosinophils # (Auto) 0.2, Basophils # (Auto) 0.1, Immature Granulocyte # (Auto) 0.1 Microbiology 11/04/20 MRSA Screen - Final, Complete MRSA not isolated HÉCTOR PEREIRA DO Nov 05, 2020 08:34
[2020-11-05] MEDS: DOCUSATE SODIUM 100 MG (COLACE) CAP PO SCH ×2 (08:54→20:23)
--- NOTE | 2020-11-05 09:52 | Anesthesia-Regional Post-Op ---
Regional Patient Condition Mental Status: Alert, Oriented x3 Circulation: Same as Pre-Op Headache: Absent Sensation: Full Recovery Motor Block: Absent Post Op Complications Complications None Follow Up Care/Instructions Patient Instructions None needed. Anesthesia/Patient Condition Patient is doing well, no complaints, stable vital signs, no apparent adverse anesthesia problems. No complications reported per nursing. D/C home per [facility] Criteria: No NEHEMIAS SU CRNA Nov 05, 2020 09:52
[2020-11-05] MEDS: IBUPROFEN 600 MG (MOTRIN) TAB PO SCH ×3 (12:22→23:54)
[2020-11-05 12:30] VITALS: BP 128/75
[2020-11-05 16:30] VITALS: BP 123/70
[2020-11-05] MEDS: SIMETHICONE 80 MG (MYLICON) CHEW PO PRN ×2 (16:37→23:09)
[2020-11-05 20:20] VITALS: BP 143/78
[2020-11-06] VITALS: BP 121/59
[2020-11-06] MEDS: IBUPROFEN 600 MG (MOTRIN) TAB PO SCH ×2 (05:48→12:31)
[2020-11-06 05:55] VITALS: BP 135/76
[2020-11-06] MEDS: HYDROcodone/APAP 5 MG/325 MG (LORTAB) TAB PO PRN ×2 (06:59→13:08)
[2020-11-06 09:00] VITALS: BP 131/76
--- NOTE | 2020-11-06 09:30 | Postpartum Progress Note ---
Note Note Day # 2 s/p CS Subjective: Patient is without complaints. Ambulating, voiding. Tolerating a regular diet wi thout nausea or vomiting. Normal lochia. Pain is well controlled with oral pain medications. breast feeding. Rh - but declining Rhogam as this is her last child (she is scheduled for BTL) Objective: 11/06/20 11/06/20 00:00 05:55 Temp 36.4 36.5 Pulse 71 63 Resp 18 18 B/P (MAP) 121/59 (79) 135/76 (95) Pulse Ox 97 96 O2 Delivery Room Air Room Air 11/06/20 00:00 Intake Total 2000 ml Output Total 1150 ml Balance 850 ml Physical Exam: General - Alert and oriented, no apparent distress Abdomen - Soft, appropriately tender to palpation, non-distended, fundus firm at umbilicus Extremities - no edema, negative Matt's bilaterally Assessment: 1. post- day # 2, status delivery. Recovering well, hemodynamically stable 2. Rh-; agree with no Rhogam as she is not having additional children. Plan: Routine care. Encourage breast feeding. Encourage ambulation. Ferrous sulfate supplementation. Plan for discharge today Vitals - Labs Vital Signs - I&O Vital Signs Date Time Temp Pulse Resp B/P (MAP) Pulse Ox O2 Delivery O2 Flow Rate FiO2 11/06/20 05:55 36.5 63 18 135/76 (95) 96 Room Air 11/06/20 00:00 36.4 71 18 121/59 (79) 97 Room Air 11/05/20 20:20 36.6 63 18 143/78 (99) 98 Room Air 11/05/20 16:30 36.7 66 18 123/70 (87) 96 Room Air 11/05/20 12:30 36.9 79 18 128/75 (92) 97 Room Air I & O 11/06/20 07:00 Intake Total 2000 ml Output Total 1150 ml Balance 850 ml Labs Microbiology 11/04/20 MRSA Screen - Final, Complete MRSA not isolated STEVEN ADDISON DO Nov 06, 2020 09:30
[2020-11-06] MEDS: DOCUSATE SODIUM 100 MG (COLACE) CAP PO SCH (09:52)
[2020-11-06 13:15] VITALS: BP 131/76
== END 2020-11-06 13:15 | disposition home or self-care (01) | DRG 787 ==
LOC: LDRP 08:25 → WS 11:54
PROVIDERS: ADMIT Obstetrics & Gynecology; ATTEND Obstetrics & Gynecology
PROC: 10D00Z1 Extraction of Products of Conception, Low, Open Approach (ICD-10-PCS; principal; 2020-11-04 10:50)
DX: O34.211 Maternal care for low transverse scar from previous cesarean delivery (principal); D62 Acute posthemorrhagic anemia; O90.81 Anemia of the puerperium; Z37.0 Single live birth; Z3A.39 39 weeks gestation of pregnancy
CPT/HCPCS: 36415; 85025; 86850; 86900; 86901; 87081; 94664